=== PATIENT | male | born 1945 | race Caucasian/White ===

== ENCOUNTER 2021-12-09 11:32 | Day surgery (SDC) | payer MEDICARE, BC ==
[~2021-12-09 11:32] MED LIST: Acetaminophen 325 MG Tab PO SCH; Lactated Ringers 1,000 ML IV SCH; Lidocaine 1%/Sod Bicarbonate in NS 8.4% 1 ML Syringe IDERM PRN; Morphine 8 MG, EPINEPHrine 0.3 MG, Cefuroxime 750 MG, Ketorolac 30 MG, Sodium Chloride ... PRN; Pregabalin 25 MG Cap PO SCH; Sodium Chloride 0.9% 10 ML Syringe FLUSH PRN; Sodium Chloride 0.9% 10 ML Syringe FLUSH SCH; oxyCODONE ER 10 MG TAB.ER PO SCH
[2021-12-09] MEDS ORDERED: Vancomycin 1 GM SDV ONE (12:49)
[2021-12-09] MEDS ORDERED: Lidocaine 1% 4 ML ONE (13:31)
[2021-12-09] MEDS ORDERED: Midazolam 1 MG/ML 2 ML SDV ONE (13:31)
[2021-12-09] MEDS ORDERED: ceFAZolin 1 GM Vial ONE (13:31)
[2021-12-09] MEDS ORDERED: Propofol 200 MG/20 ML SDV ONE ×2 (13:31→14:50)
[2021-12-09] MEDS ORDERED: Ondansetron 4 MG/2 ML SDV ONE (13:32)
[2021-12-09] MEDS ORDERED: Lactated Ringers 1,000 ML ONE (14:42)
[2021-12-09] MEDS ORDERED: Ondansetron 4 MG/2 ML SDV IVPUSH PRN (15:37)
[2021-12-09] MEDS ORDERED: HYDROmorphone 0.5 MG/0.5 ML Syringe IVPUSH PRN (15:37)
[2021-12-09] MEDS ORDERED: fentaNYL 100 MCG/2 ML SDV IVPUSH PRN (15:37)
[2021-12-09] MEDS ORDERED: Ropivacaine 0.5% 5 MG/ML 30 ML SDV ONE (15:44)
[2021-12-09] MEDS ORDERED: EPINEPHrine 1 MG/ML SDV ONE (15:44)
== END 2021-12-09 19:09 | disposition home or self-care (01) ==
LOC: JD.SDS 11:32 → JD.MS 17:18 → JD.SDS 19:09
PROVIDERS: ATTEND Orthopaedic Surgery
DX: M17.11 Unilateral primary osteoarthritis, right knee (principal); J44.9 Chronic obstructive pulmonary disease, unspecified; F33.1 Major depressive disorder, recurrent, moderate; F41.9 Anxiety disorder, unspecified; E03.9 Hypothyroidism, unspecified; I10 Essential (primary) hypertension; R00.1 Bradycardia, unspecified; K21.9 Gastro-esophageal reflux disease without esophagitis; N40.0 Benign prostatic hyperplasia without lower urinary tract symptoms; Z87.891 Personal history of nicotine dependence; E78.00 Pure hypercholesterolemia, unspecified; Z98.890 Other specified postprocedural states; Z79.890 Hormone replacement therapy; Z79.899 Other long term (current) drug therapy; Z79.82 Long term (current) use of aspirin
CPT/HCPCS: 27447; 73560; 97110; 97116; 97161; A9270; C1713; C1776; J0171; J0690; J0697; J1885; J2250; J2270; J2405; J2704; J2795; J3370; J7030; J7120; 01402; 64447; 76942